=== PATIENT | female | born 1990 | race Caucasian/White ===

== ENCOUNTER 2023-10-09 19:22 | Emergency (ER) | payer OTHER ==
[~2023-10-09] VITALS: Ht 165.1 cm; Wt 98.0 kg
[2023-10-09] MEDS ORDERED: METF-1185 PO (20:16)
[2023-10-09 20:21] LABS: GLUCOMETER DEV NAME(LOC) ERT.5; GLUCOSE,POINT OF CARE 123 MG/DL (70-110)
[2023-10-10 01:40] LABS: BASOPHILS % (AUTO) 0.8 % (0.0-2.0); EOSINOPHILS % (AUTO) 1.4 % (1.0-6.0); HEMOGLOBIN 11.4 g/dL (12.0-16.0); MEAN CORPUSCULAR HEMOGLOBIN 25.4 pg (26.0-34.0); MEAN CORPUSCULAR HGB CONC 32.7 G/dL (31.0-37.0); MEAN CORPUSCULAR VOLUME 78 fL (80-100); MONOCYTES # (AUTO) 0.7 K/uL (0.1-1.0); MONOCYTES % (AUTO) 5.8 % (2.0-9.0); NEUTROPHILS # (AUTO) 8.4 K/uL (1.8-7.7); PLATELET COUNT (AUTO) 328 K/uL (150-450); RED BLOOD CELL COUNT(AUTO) 4.51 MIL/uL (4.00-5.20); RED CELL DISTRIBUTION WIDTH 14.6 % (11.5-14.5); WHITE BLOOD COUNT (AUTO) 12.4 K/uL (4.5-11.0)
[2023-10-10 01:49] LABS: ANION GAP 9 mmol/L (8-16); CALCIUM, TOTAL 9.6 mg/dL (8.8-10.5); CARBON DIOXIDE 29 mmol/L (22-29); CHLORIDE 100 mmol/L (98-107); CREATININE 0.68 mg/dL (0.60-1.30); GLOMERULAR FILTR. RATE CALC > 60 mL/min (>60); GLUCOSE,RANDOM 144 mg/dL (70-110); POTASSIUM 3.7 mmol/L (3.5-5.1); SODIUM SERUM 138 mmol/L (136-145); UREA NITROGEN, BLOOD 10 mg/dL (7-18)
[2023-10-10 01:55] LABS: ALANINE AMINOTRANSFERASE 25 U/L (12-78); ALKALINE PHOSPHATASE 111 U/L (46-116); ASPARTATE AMINOTRANSFERASE 15 U/L (15-37); BILIRUBIN,TOTAL 0.4 mg/dL (0.1-1.0); TOTAL PROTEIN, SERUM 7.6 g/dL (6.4-8.2)
[2023-10-10 02:00] VITALS: BP 138/78; PULSE 82; RESP 18; TEMP 98.6
[2023-10-10] MEDS: PredniSONE 20 MG TABLET PO ONE (02:23)
[2023-10-10] MEDS ORDERED: PRED-554 PO (03:00)
[2023-10-10] MEDS ORDERED: ACYC-138 PO (03:02)
[2023-10-10] MEDS ORDERED: LANO3.5O OD (03:08)
== END 2023-10-10 03:23 | disposition home or self-care (01) ==
LOC: EMS 19:24
DX: G51.0 Bell's palsy (principal); E11.9 Type 2 diabetes mellitus without complications; Z98.890 Other specified postprocedural states; Z88.8 Allergy status to other drugs, medicaments and biological substances
CPT/HCPCS: 99284; 80053; 82962; 84703; 85025; 36415; 70450; J7512